=== PATIENT | female | born 1940 | race Asian ===

== ENCOUNTER 2024-03-12 00:38 | Inpatient (IN) | payer MEDICARE, OTHER ==
[~2024-03-12] VITALS: Ht 170.2 cm; Wt 65.8 kg
[2024-03-12] MEDS ORDERED: OMEP20TA5 PO (01:06)
[2024-03-12] MEDS ORDERED: ROSU5TAB PO (01:06)
[2024-03-12] MEDS ORDERED: FERR325T30 PO (01:06)
[2024-03-12] MEDS ORDERED: NIFE-34 PO (01:06)
[2024-03-12] MEDS ORDERED: OLME40TA12 PO (01:06)
[2024-03-12] MEDS ORDERED: LEVO5TAB13 PO (01:06)
[2024-03-12] MEDS ORDERED: NAPR-1009 PO (01:06)
[2024-03-12 02:00] LABS: *BILIRUBIN,URIN NEGATIVE (NEGATIVE); *BLOOD, URINE NEGATIVE (NEGATIVE); *CLARITY,URINE CLEAR (CLEAR); *COLOR,URINE YELLOW (YELLOW); *KETONES,URINE NEGATIVE (NEGATIVE); *PROTEIN,URINE NEGATIVE (NEGATIVE); *UROBILINOGEN,URINE 0.2 E.U./dl (NORMAL); LEUKOCYTE ESTERASE ,URINE NEGATIVE (NEGATIVE); NITRITE, URINE NEGATIVE (NEGATIVE); PH,URINE 6.5 (5.0-8.0); UGLUCOSE NEGATIVE (NEGATIVE)
[2024-03-12 02:12] LABS: BASOPHILS # (AUTO) 0.1 K/UL (0.0-0.2); BASOPHILS % (AUTO) 0.9 % (0.0-2.0); EOSINOPHILS # (AUTO) 0.4 K/uL (0.0-0.7); EOSINOPHILS % (AUTO) 6.1 % (0.0-7.0); HEMATOCRIT 32.1 % (31.2-41.9); HEMOGLOBIN 10.8 g/dL (10.9-14.3); LYMPHOCYTES # (AUTO) 1.4 K/uL (0.8-4.8); LYMPHOCYTES % (AUTO) 21.5 % (20.5-51.5); MEAN CORPUSCULAR HEMOGLOBIN 31.1 uug (24.7-32.8); MEAN CORPUSCULAR HGB CONC 34 g/dL (32.3-35.6); MEAN CORPUSCULAR VOLUME 92.1 fL (75.5-95.3); MONOCYTES # (AUTO) 0.6 K/uL (0.1-1.30); MONOCYTES % (AUTO) 8.7 % (0.0-11.0); NEUTROPHILS # (AUTO) 4.1 K/uL (1.8-8.9); NEUTROPHILS % (AUTO) 62.8 % (38.5-71.5); PLATELET COUNT (AUTO) 299 K/uL (179-408); RED BLOOD CELL COUNT(AUTO) 3.48 MIL/uL (3.63-4.92); RED CELL DISTRIBUTION WIDTH 13.8 % (12.3-17.7); WHITE BLOOD COUNT (AUTO) 6.6 K/uL (3.8-11.8)
[2024-03-12 02:14] LABS: DIFFERENTIAL COMMENT 1
[2024-03-12 02:15] LABS: CALCIUM 8.8 mg/dL (8.5-10.1); CARBON DIOXIDE 26 mmol/L (21-32); CHLORIDE 97 mmol/L (98-107); CREATININE 0.7 mg/dL (0.6-1.3); GLUCOSE 126 mg/dL (74-106); POTASSIUM 4.5 mmol/L (3.5-5.1); SODIUM SERUM 132 mmol/L (136-145); UREA NITROGEN, BLOOD 23 mg/dL (7-18)
[2024-03-12 02:26] LABS: ALBUMIN 3.2 g/dL (3.4-5.0); BILIRUBIN,DIRECT 0.1 mg/dL (0.0-0.2); BILIRUBIN,TOTAL 0.3 mg/dL (0.2-1.0); MAGNESIUM 2.1 mg/dL (1.8-2.4); TOTAL PROTEIN, SERUM 6.9 g/dL (6.4-8.2)
[2024-03-12] MEDS ORDERED: AMIODARONE HCL IV 150 MG in IV DEXTROSE 5% 100 ML IV ONE (06:00)
[2024-03-12 10:16] LABS: BASOPHILS # (AUTO) 0.1 K/UL (0.0-0.2); BASOPHILS % (AUTO) 1.1 % (0.0-2.0); EOSINOPHILS # (AUTO) 0.3 K/uL (0.0-0.7); EOSINOPHILS % (AUTO) 5.9 % (0.0-7.0); LYMPHOCYTES # (AUTO) 1.6 K/uL (0.8-4.8); LYMPHOCYTES % (AUTO) 31.6 % (20.5-51.5); MEAN CORPUSCULAR HEMOGLOBIN 30.7 uug (24.7-32.8); MEAN CORPUSCULAR HGB CONC 33 g/dL (32.3-35.6); MEAN CORPUSCULAR VOLUME 92.6 fL (75.5-95.3); MONOCYTES # (AUTO) 0.4 K/uL (0.1-1.30); MONOCYTES % (AUTO) 7.6 % (0.0-11.0); NEUTROPHILS # (AUTO) 2.7 K/uL (1.8-8.9); NEUTROPHILS % (AUTO) 53.8 % (38.5-71.5); PLATELET COUNT (AUTO) 345 K/uL (179-408); RED BLOOD CELL COUNT(AUTO) 3.57 MIL/uL (3.63-4.92); RED CELL DISTRIBUTION WIDTH 14.2 % (12.3-17.7); WHITE BLOOD COUNT (AUTO) 4.9 K/uL (3.8-11.8)
[2024-03-12 10:29] LABS: CALCIUM 8.9 mg/dL (8.5-10.1); CARBON DIOXIDE 28 mmol/L (21-32); CHLORIDE 101 mmol/L (98-107); CREATININE 0.5 mg/dL (0.6-1.3); GLUCOSE 117 mg/dL (74-106); POTASSIUM 4.2 mmol/L (3.5-5.1); SODIUM SERUM 136 mmol/L (136-145); UREA NITROGEN, BLOOD 16 mg/dL (7-18)
[2024-03-12 10:30] VITALS: BP 109/90; TEMP 97.8; O2SAT 98
[2024-03-12 10:32] LABS: IRON, SERUM 60 ug/dL (50-175)
[2024-03-12 10:35] LABS: ALANINE AMINOTRANSFERASE 23 U/L (14-59); ALBUMIN 3.1 g/dL (3.4-5.0); ALKALINE PHOSPHATASE 171 U/L (50-136); ASPARTATE AMINOTRANSFERASE 15 U/L (15-37); BILIRUBIN,TOTAL 0.5 mg/dL (0.2-1.0); CHOLESTEROL 152 mg/dL (<200); HDL CHOLESTEROL 70 mg/dL (40-60); PHOSPHOROUS 4.2 mg/dL (2.5-4.9); TOTAL PROTEIN, SERUM 7.1 g/dL (6.4-8.2); TRIGLYCERIDES 50 MG/DL (30-150)
[2024-03-12 10:42] LABS: THYROID STIMULATING HORMONE 1.124 mIU/mL (0.358-3.740)
[2024-03-12] MEDS ORDERED: ACETAMINOPHEN 650 MG SUPP.RECT RC PRN (13:30)
[2024-03-12] MEDS ORDERED: ONDANSETRON 4 MG/2 ML VIAL IV PRN (13:30)
[2024-03-12] MEDS: IV D5/ 0.9% NACL 1,000 ML IV PRN (13:51)
[2024-03-12] MEDS ORDERED: CALC500T52 PO (15:37)
[2024-03-12] MEDS ORDERED: SERT25TA PO (15:37)
[2024-03-12] MEDS ORDERED: CHOL200059 PO (15:37)
[2024-03-12 16:00] VITALS: BP 123/60; TEMP 97.6; O2SAT 97
[2024-03-12] MEDS: MORPHINE SULFATE 2 MG/1 ML DISP.SYRIN IV PRN (16:02)
[2024-03-12] MEDS ORDERED: ACETAMINOPHEN 325 MG TABLET PO PRN (17:45)
[2024-03-12] MEDS: NIFEdipine XL 30 MG TABSR PO SCH (18:16)
[2024-03-12] MEDS: ENOXAPARIN SODIUM 40 MG/0.4 ML DISP.SYRIN SQ SCH (18:17)
[2024-03-12 20:00] VITALS: BP 123/53; TEMP 98; O2SAT 95
[2024-03-12] MEDS: SERTRALINE HCL 50 MG TABLET PO SCH (20:19)
[2024-03-13 06:00] VITALS: BP 132/66; TEMP 98; O2SAT 94
[2024-03-13] MEDS: PANTOPRAZOLE SODIUM 40 MG TABLET.DR PO SCH (06:20)
[2024-03-13 07:01] LABS: EOSINOPHILS # (AUTO) 0.2 K/uL (0.0-0.7); EOSINOPHILS % (AUTO) 4.6 % (0.0-7.0); HEMATOCRIT 32.9 % (31.2-41.9); HEMOGLOBIN 11.2 g/dL (10.9-14.3); LYMPHOCYTES # (AUTO) 1.3 K/uL (0.8-4.8); LYMPHOCYTES % (AUTO) 28.9 % (20.5-51.5); MEAN CORPUSCULAR HEMOGLOBIN 31.3 uug (24.7-32.8); MEAN CORPUSCULAR HGB CONC 34 g/dL (32.3-35.6); MEAN CORPUSCULAR VOLUME 92.2 fL (75.5-95.3); MONOCYTES # (AUTO) 0.3 K/uL (0.1-1.30); MONOCYTES % (AUTO) 6.9 % (0.0-11.0); NEUTROPHILS # (AUTO) 2.6 K/uL (1.8-8.9); NEUTROPHILS % (AUTO) 58.6 % (38.5-71.5); PLATELET COUNT (AUTO) 361 K/uL (179-408); RED BLOOD CELL COUNT(AUTO) 3.56 MIL/uL (3.63-4.92); WHITE BLOOD COUNT (AUTO) 4.5 K/uL (3.8-11.8)
[2024-03-13 07:15] LABS: CALCIUM 8.8 mg/dL (8.5-10.1); CARBON DIOXIDE 25 mmol/L (21-32); CHLORIDE 102 mmol/L (98-107); CREATININE 0.7 mg/dL (0.6-1.3); GLUCOSE 114 mg/dL (74-106); MAGNESIUM 2.3 mg/dL (1.8-2.4); SODIUM SERUM 135 mmol/L (136-145); UREA NITROGEN, BLOOD 16 mg/dL (7-18)
[2024-03-13 07:18] LABS: DIFFERENTIAL COMMENT 1
[2024-03-13 07:34] LABS: POTASSIUM 4.4 mmol/L (3.5-5.1)
[2024-03-13] MEDS ORDERED: PANTOPRAZOLE SODIUM 40 MG VIAL IV SCH (09:00)
[2024-03-13 12:00] VITALS: BP 137/68; TEMP 98.6; O2SAT 95
[2024-03-13 16:27] VITALS: BP 132/58; TEMP 97.9; O2SAT 96
[2024-03-13 20:00] VITALS: BP 142/67; TEMP 98; O2SAT 94
[2024-03-14 06:00] VITALS: BP 159/85; TEMP 98.6; O2SAT 93
[2024-03-14 12:00] VITALS: BP 115/49; TEMP 98; O2SAT 94
[2024-03-14] MEDS ORDERED: VITAMINS A AND D OINT 42 GM TUBE TP PRN (15:45)
[2024-03-14] MEDS ORDERED: ACET325C7 PO (17:06)
[2024-03-14] MEDS ORDERED: PANT40TA49 PO (17:13)
[2024-03-14] MEDS ORDERED: ENOX40DI SQ (17:13)
[2024-03-14] MEDS ORDERED: NIFE30TA2 PO (17:13)
[2024-03-14] MEDS ORDERED: ONDA2VIA4 IV (17:13)
[2024-03-14] MEDS ORDERED: SERT25TA PO (17:13)
== END 2024-03-14 16:03 | DRG 535 ==
LOC: ER 00:49 → MEDSURG3 08:21
PROVIDERS: ADMIT Internal Medicine; ATTEND Internal Medicine
PROC: 05HB33Z Insertion of Infusion Device into Right Basilic Vein, Percutaneous Approach (ICD-10-PCS; principal; 2024-03-12)
DX: S32.82XA Multiple fractures of pelvis without disruption of pelvic ring, initial encounter for closed fracture (principal); S32.491A Other specified fracture of right acetabulum, initial encounter for closed fracture; D68.59 Other primary thrombophilia; K80.00 Calculus of gallbladder with acute cholecystitis without obstruction; R29.6 Repeated falls; W19.XXXA Unspecified fall, initial encounter; Y92.89 Other specified places as the place of occurrence of the external cause; Z74.09 Other reduced mobility; S00.83XA Contusion of other part of head, initial encounter; S00.03XA Contusion of scalp, initial encounter; S93.601A Unspecified sprain of right foot, initial encounter; M48.56XD Collapsed vertebra, not elsewhere classified, lumbar region, subsequent encounter for fracture with routine healing; M81.0 Age-related osteoporosis without current pathological fracture; D64.9 Anemia, unspecified; G20.A1 Parkinson's disease without dyskinesia, without mention of fluctuations; E78.5 Hyperlipidemia, unspecified; I11.9 Hypertensive heart disease without heart failure; R60.0 Localized edema; L85.3 Xerosis cutis; L84 Corns and callosities; F32.A Depression, unspecified; R53.1 Weakness; R26.81 Unsteadiness on feet; I25.10 Atherosclerotic heart disease of native coronary artery without angina pectoris; E04.1 Nontoxic single thyroid nodule; R94.31 Abnormal electrocardiogram [ECG] [EKG]; Z79.899 Other long term (current) drug therapy; R91.1 Solitary pulmonary nodule
CPT/HCPCS: 36415; 70450; 70486; 71250; 72131; 73551; 73600; 73620; 76705; 83550; 83690; 83735; 84100; 84443; 84484; 85025; 85730; 93005; 93307; A4663; G0378; J0282; J1650; J2270; J7042

== ENCOUNTER 2024-03-14 16:31 | Inpatient (IN) | payer MEDICARE, OTHER ==
[~2024-03-14] VITALS: Ht 170.2 cm; Wt 65.8 kg
[2024-03-14 16:00] VITALS: BP 136/58; TEMP 98.3; O2SAT 93
[~2024-03-14 16:31] MED LIST: CALC500T52 PO; CHOL200059 PO; FERR325T30 PO; LEVO5TAB13 PO; NAPR-1009 PO; NIFE-34 PO; OLME40TA12 PO; OMEP20TA5 PO; ROSU5TAB PO; SERT25TA PO
[2024-03-14] MEDS ORDERED: ACET325C7 PO (17:06)
[2024-03-14] MEDS ORDERED: ONDA2VIA4 IV (17:13)
[2024-03-14] MEDS ORDERED: PANT40TA49 PO (17:13)
[2024-03-14] MEDS ORDERED: NIFE30TA2 PO (17:13)
[2024-03-14] MEDS ORDERED: ENOX40DI SQ (17:13)
[2024-03-14] MEDS ORDERED: SERT25TA PO (17:13)
[2024-03-14 20:00] VITALS: BP 187/78; TEMP 98.5; O2SAT 100
[2024-03-14] MEDS: REMEDY ESSENTIAL ZINC PASTE 113 GM TOP SCH (22:22)
[2024-03-14] MEDS: ATORVASTATIN 10 MG TABLET PO SCH (22:22)
[2024-03-15 01:00] VITALS: BP 119/71; TEMP 98.5; O2SAT 94
[2024-03-15 05:42] VITALS: BP 136/86; TEMP 97.4; O2SAT 93
[2024-03-15] MEDS: PANTOPRAZOLE SODIUM 40 MG TABLET.DR PO SCH (06:13)
[2024-03-15] MEDS ORDERED: Medication Not On Formulary EA (Levocetirizine Dihydrochloride 5 MG) PO SCH (09:00)
[2024-03-15] MEDS ORDERED: Medication Not On Formulary EA (Omeprazole 20 MG) PO SCH (09:00)
[2024-03-15] MEDS ORDERED: Medication Not On Formulary EA (Rosuvastatin Calcium (Crestor) 5 MG) PO SCH (09:00)
[2024-03-15] MEDS ORDERED: Medication Not On Formulary EA (Olmesartan Medoxomil (Benicar) 40 MG) PO SCH (09:00)
[2024-03-15] MEDS: FERROUS SULFATE 325 MG TABEC PO SCH (09:03)
[2024-03-15] MEDS: CALCIUM CARBONATE 500 MG TABLET PO SCH (09:03)
[2024-03-15] MEDS: SERTRALINE HCL 50 MG TABLET PO SCH (09:03)
[2024-03-15] MEDS: LOSARTAN POTASSIUM 50 MG TABLET PO SCH (09:04)
[2024-03-15] MEDS: NIFEdipine XL 60 MG TABSR PO SCH (09:04)
[2024-03-15] MEDS: CHOLECALCIFEROL 1,000 UNIT TABLET PO SCH (09:04)
[2024-03-15] MEDS: ENOXAPARIN SODIUM 40 MG/0.4 ML DISP.SYRIN SQ SCH (09:07)
[2024-03-15] MEDS: ACETAMINOPHEN 325 MG TABLET PO PRN (09:10)
[2024-03-15 09:51] VITALS: BP 152/82; TEMP 98; O2SAT 94
[2024-03-15 16:00] VITALS: BP 115/53; TEMP 98.3; O2SAT 94
[2024-03-15 20:00] VITALS: BP 134/71; TEMP 98.3; O2SAT 95
[2024-03-16 05:00] VITALS: BP 164/77; TEMP 98.5; O2SAT 96
[2024-03-16 06:16] VITALS: BP 155/70
[2024-03-16] MEDS: NAPROXEN 500 MG TABLET PO PRN (12:27)
[2024-03-16 15:48] VITALS: BP 132/81; TEMP 97.6; O2SAT 99
[2024-03-16 20:14] VITALS: BP 115/56; TEMP 98; O2SAT 95
[2024-03-17 04:23] VITALS: BP 125/75; TEMP 97.8; O2SAT 95
[2024-03-17 08:00] VITALS: BP 141/63; TEMP 97.8; O2SAT 95
[2024-03-17 16:15] VITALS: BP 130/71; TEMP 98.4; O2SAT 95
[2024-03-17 20:34] VITALS: BP 112/60; TEMP 98.2; O2SAT 96
[2024-03-18 05:20] VITALS: BP 154/75; TEMP 97.8; O2SAT 97
[2024-03-18 07:16] VITALS: BP 148/70; TEMP 98.4; O2SAT 96
[2024-03-18] MEDS: LEVOCETIRIZINE 5 MG PO PRN (12:32)
[2024-03-18 15:00] VITALS: BP 156/72; TEMP 98.2; O2SAT 94
[2024-03-18 20:00] VITALS: BP 130/67; TEMP 97.6; O2SAT 96
[2024-03-19] VITALS: TEMP 97.5
[2024-03-19 06:00] VITALS: BP 140/71; TEMP 98.1; O2SAT 95
[2024-03-19 08:14] VITALS: BP 140/74
== END 2024-03-19 11:15 | disposition home health service (06) | DRG 560 ==
PROVIDERS: ADMIT Physical Medicine & Rehabilitation Pain Medicine; ATTEND Physical Medicine & Rehabilitation Pain Medicine
DX: S32.810D Multiple fractures of pelvis with stable disruption of pelvic ring, subsequent encounter for fracture with routine healing (principal); D68.59 Other primary thrombophilia; S32.401D Unspecified fracture of right acetabulum, subsequent encounter for fracture with routine healing; S00.03XD Contusion of scalp, subsequent encounter; I25.10 Atherosclerotic heart disease of native coronary artery without angina pectoris; M19.90 Unspecified osteoarthritis, unspecified site; D64.9 Anemia, unspecified; E04.1 Nontoxic single thyroid nodule; E78.5 Hyperlipidemia, unspecified; I10 Essential (primary) hypertension; W19.XXXD Unspecified fall, subsequent encounter; K80.20 Calculus of gallbladder without cholecystitis without obstruction; M81.0 Age-related osteoporosis without current pathological fracture; R29.6 Repeated falls; Z91.81 History of falling; R26.81 Unsteadiness on feet; R91.1 Solitary pulmonary nodule
CPT/HCPCS: 97535-GO-CO; J1650